=== PATIENT | male | born 1960 | race Caucasian/White ===

== ENCOUNTER 2016-08-31 17:11 | Emergency (ER) | payer SELFPAY ==
--- NOTE | 2016-08-31 17:40 | EDPHY ---
H & P Stated Complaint: BILAT LEG PAIN/HX DVT YEARS AGO - Personal History Current Tetanus/Diphtheria Vaccine: Unsure - Medical/Surgical History Hx Asthma: No Hx Chronic Respiratory Disease: No Hx Diabetes: No Hx Cardiac Disease: No Hx Renal Disease: No Hx Cirrhosis: No Hx Alcoholism: No Hx HIV/AIDS: No Hx Splenectomy or Spleen Trauma: No Other PMH: BACK ISSUES/DVT - Social History Smoking Status: Current some day smoker Time Seen by Provider: 08/31/16 17:25 HPI/ROS: Chief complaint: Bilateral leg pain History of present illness: This is a 55-year-old male who presents to the emergency department for evaluation of bilateral leg pain. Patient had a legal ankle bracelet placed on his left ankle last week. It started causing pain and it was switched to his right ankle and is now causing him pain in his right ankle. He describes excruciating pain. He states he needs to use a cane because of the pain. He is requesting that we provide documentation that the ankle bracelet is the cause of his pain. He has no other complaints. (Junior Morales) - Physical Exam Exam: General: Alert, nontoxic Musculoskeletal: Moving the lower extremities bilaterally without apparent difficulty, ambulating with a cane. Vascular: DP and PT pulses 2+ bilaterally. Neurologic: Sensation intact in the lower extremities. (Junior Morales) Constitutional: Initial Vital Signs Temperature (C) 36.7 C 08/31/16 17:14 Heart Rate 70 08/31/16 17:14 Respiratory Rate 16 08/31/16 17:14 Blood Pressure 113/74 08/31/16 17:14 O2 Sat (%) 95 08/31/16 17:14 O2 Delivery Mode Room Air Allergies/Adverse Reactions: No Known Allergies Allergy (Unverified 08/31/16 17:14) Home Medications: Medication Instructions Recorded NK [No Known Home Meds] 08/31/16 Medical Decision Making ED Course/Re-evaluation: The patient was evaluated and managed by the physician's orthodontic technician assistant. My cosignature indicates that I reviewed the chart and I agree with the findings and plan of care as documented. I am the secondary supervising physician. ( Leann Leo) Patient seen under the supervision of my secondary supervising physician Dr. Leann Leo. Patient presents to the emergency department complaining of bilateral lower leg pain. He states the pain is secondary to an ankle bracelet. He is requesting documentation stating that the ankle bracelet is the cause of his pain. I have offered to perform further evaluation including ultrasounds for DVTs, as well as blood studies and EKGs to ensure no other causes of bilateral lower leg pain. He has declined. I have discussed with him I will not provide documentation linking his ankle bracelet to to his pain, he will need to see a primary care doctor for further discussion of this problem. Referral information is provided. Return precautions are given. ( Junior Morales) Departure - Departure Disposition: Home, Routine, Self-Care Clinical Impression: Leg pain Qualifiers: Laterality: bilateral Qualified Code(s): M79.604 - Pain in right leg Condition: Good Instructions: Leg Pain (ED) Additional Instructions: Follow-up with a primary care doctor for recheck You were offered evaluation in the emergency room to ensure no other underlying pathology present causing your leg pain including ultrasounds, blood studies and EKG, you declined Referrals: NONE *PRIMARY CARE P,. [Primary Care Provider] - As per Instructions [facility],. [Clinic] - As per Instructions
[2016-08-31 17:50] VITALS: BP 115/89; PULSE 78; RESP 20; TEMP 98.6; O2SAT 96
== END 2016-08-31 17:50 | disposition home or self-care (01) ==
DX: M79.604 Pain in right leg (principal); M79.605 Pain in left leg; F17.200 Nicotine dependence, unspecified, uncomplicated